=== PATIENT | female | born 1985 | race Caucasian/White ===

== ENCOUNTER → 2020-01-25 10:52 | Outpatient (CLI) | payer MEDICAID, SELFPAY ==
--- NOTE | 2020-01-25 10:52 | US_ITS ---
PROCEDURE: US BREAST LT COMPLETE CLINICAL INDICATION: US Left Breast- pain COMPARISON: No exams were available for comparison FINDINGS: General survey performed of the left breast by ultrasound shows no obvious cystic or solid lesions. IMPRESSION: Negative left breast ultrasound. Negative ultrasound does not exclude the possibility of malignancy. Any palpable nodule should be managed on clinical basis. Dictated by: Carlitos Patino MD 01/31/2020 09:47 Electronically signed by Carlitos Patino MD in [place] 01/31/2020 09:47
== END ==
PROVIDERS: PCP Family Medicine; Visit Provider Obstetrics & Gynecology
DX: N64.4 Mastodynia (principal)
CPT/HCPCS: 76641

== ENCOUNTER → 2020-03-05 10:47 | Outpatient (CLI) | payer MEDICAID, SELFPAY ==
[2020-03-05 11:31] LABS: Basophils % 0.2 % (0.1-2.0); Eosinophils # 0.2 K/mm3 (0.0-0.4); Eosinophils % 2.3 % (0.1-12.0); Hematocrit 37.2 % (37.0-47.0); Hemoglobin 12.7 g/dL (12.2-16.2); Lymphocytes # 1.6 K/mm3 (0.7-4.5); Lymphocytes % 22.3 % (10-50); Mean Corpuscular HGB Conc 34.2 g/dL (31.8-35.4); Mean Corpuscular Hemoglobin 29.7 pg (27.0-31.2); Mean Corpuscular Volume 86.8 fl (81-99); Mean Platelet Volume 7.4 fl (7.4-10.4); Monocytes # 0.2 K/mm3 (0.1-1.0); Monocytes % 2.9 % (1.7-9.3); Neutrophils # 5.3 K/mm3 (1.8-7.8); Neutrophils % 72.3 % (37.0-80.0); Platelet Count 298 K/mm3 (142-424); Red Blood Count 4.28 M/mm3 (4.20-5.40); Red Cell Distribution Width 13.8 % (11.5-17.5); White Blood Count 7.4 K/mm3 (4.8-10.8)
[2020-03-05 11:55] LABS: HCG Qualitative, Serum Negative (Negative)
[2020-03-05 12:21] LABS: Chloride 104 mmol/L (98-107)
[2020-03-05 12:22] LABS: Potassium 4.5 mmoL/L (3.5-5.1); Sodium 139 mmol/L (136-145)
[2020-03-05 12:24] LABS: Alanine Aminotransferase 18 U/L (12-78); Alkaline Phosphatase 75 U/L (38-126); Aspartate Amino Transferase 28 U/L (14-36); Bilirubin,Total 0.4 mg/dl (0.2-1.3); Blood Urea Nitrogen 15 mg/dl (7-17); Estimated Glomerular Filt Rate 96 ml/min (>60); GFR (African American) 117 ML/MIN (>60)
[2020-03-05 12:25] LABS: Albumin/Globulin Ratio 1.5 (1.1-1.8); Anion Gap 13.5 mEq/L (5-15); Calcium 9.6 mg/dl (8.4-10.2); Carbon Dioxide 26 mmol/L (22.0-30.0); Globulin 2.7 g/dL (1.3-3.2); Glucose 109 mg/dl (74-100); Total Protein,Serum 6.7 g/dl (6.3-8.2)
[2020-03-05 12:52] LABS: Coronavirus 19 IgG Antibody Negative (Negative); Coronavirus 19 IgM Antibody Negative (Negative)
== END ==
PROVIDERS: Visit Provider Obstetrics & Gynecology
DX: Z01.818 Encounter for other preprocedural examination (principal); Z20.828 Contact with and (suspected) exposure to other viral communicable diseases
CPT/HCPCS: 36415; 80053; 84703; 85025; 86328

== ENCOUNTER 2020-03-07 06:02 | Day surgery (SDC) | payer MEDICAID, SELFPAY ==
[2020-03-05 13:20] VITALS: BMI 36.3
[2020-03-07] VITALS (15 sets, daily range): BP systolic 112–178; BP diastolic 70–93; PULSE 64–83; RESP 12–18; TEMP 36.1–43; O2SAT 93–100
--- NOTE | 2020-03-07 07:34 | HMH.ANESCL ---
[facility] Anesthesia Checklist - Structural Data Admitted From: Home Planned Operative Procedure/s: d/c myosure Consent for Planned Operative Procedure(s) Verified: Yes - Additional verifications Anesthesia Reactions: No (difficult intubation) Hx Blood Transfusions: No Blood Transfusion Reaction: No - Airway Assessment C-Spine Mobility Assessed: Yes TMJ Mobility Assessed: Yes Dentition: Good Dentition - Neurological Assessment Level of Consciousness: Awake, Alert, Appropriate - Anesthesia Plan Anesthesia Risk discussed: Yes Anesthesia Plan: Verified ASA Class: II Anesthesia Type: General [facility] History Medical History: Denies:: Cancer, Diabetes Mellitus Type 1, Diabetes Mellitus Type 2, Internal Pacemaker, MRSA, Seizures *Have you ever received a pneumonia vaccine?: No *Have you received a flu vaccine this season?: Yes Other Medical History: Denies: Blood Transfusion Reaction Anesthesia experience/problems:: none Laterality Cases: Bilateral: Tonsillectomy Other Surgeries: No: Pacemaker Amputation: No Fractures: No - *Social History Last grade of school completed: High school graduate Smoking Status: Never smoker Alcohol Intake: never Alcohol Intake Frequency:: other Substance Use Type: denies use *Occupational Status:: unemployed Housing: house Household Members: spouse, family *Travel in the last 8 weeks: None Family Hx:: No significant family history
--- NOTE | 2020-03-07 09:01 | HMH.ANESI ---
[facility] Anesthesia Record Part I Intake, IV Amount: 1,200 Estimated blood loss (mL): 10 Urine output (mL): 100 Blood Pressure: 112/75 SaO2: 93 Pulse Rate: 83 Respiratory Rate: 12 Temperature: 97.8 F Patient is:: Awake, Stable Stable to PACU at:: 09:00
--- NOTE | 2020-03-07 09:21 | HMH.OPNOTE ---
Date of procedure: 03/07/20 Pre-op Diagnosis:: Heavy menstrual bleeding, severe dysmenorrhea, failed medical management Post-op Diagnosis:: same Procedure performed:: D&C Hysteroscopy Novasure Endometrial Ablation Surgeon:: Amparo Kumar MD DELIVERY ROUTE DRIVER:: Vinny Rader Anesthesia: GETA Estimated blood loss (mL): 5 Operative findings:: Grossly normal uterine cavity Operative note:: The patient was taken to the operating room and general anesthesia was administered. She was prepped/draped in lithotomy position. The anterior lip of the cervix was grasped with a single tooth tenaculum and the cervix was dilated with Berkowitz dilators of serially increasing size until the external os was able to accomodate the Myosure hysteroscope. The hysteroscope was advanced through the cervix and into the uterine cavity, which was distended with LR. Once the uterus was sufficiently distended, the cavity was evaluated and revealed no visible fibroids or polyps. The hysteroscope was removed from the uterus ans sharp curettage was performed. The uterine cavity sounded to a length of 5cm. The Novasure was inserted through the cervix and expanded to fit the width of the uterus, with a width of 4.3cm. After a successful cavity assessment, the device was deployed and the endometrial ablation was completed in 74 seconds. Once the device had turned off, the Novasure was removed from the uterus and the hysteroscope was reinserted into the uterine cavity. The cavity appeared diffusely cauterized. The hysteroscope was removed from the uterus and all instruments removed from the vagina. The tenaculum site was hemostatic. All sponge/lap/needle/instrument counts correct x2. Total EBL: 5 cc. The patient was taken out of lithotomy position, extubated and taken to the PACU in stable condition. Condition: stable Disposition: PACU Specimens:: Endometrial curettings Complications:: none
--- NOTE | 2020-03-07 09:40 | PC.NURSE ---
0922-pt med per eMAR for nausea w/Zofran 4mg IVP, pt reports pain is easing w/meds and turning on left side, vss 0928-detailed report called to EstefaniaRN 0930-pt transported to post op via stretcher w/anay rails up and left in care of KAMILAH Ngo with bed locked in lowest position, deatiled report given at bedside, vss, pt stable
--- NOTE | 2020-03-08 06:53 | P.PN_ITS ---
[facility] Anesthesia Record Part II Discharge Time: 09:30 Destination: Surgical Day Care (OP Surgery) PACU nurse assessment reviewed?: Yes Patient Condition:: Good Anesthesia Complications:: None Swallowing reflex intact?: Yes Cyanosis?: No Blood Pressure: 122/73 Pulse Rate: 71 Temperature: 98.1 F Mental Status: Alert & Oriented Pain level:: 3 Nausea and/or vomitting:: Nauseated Intake, IV Amount: 0 (Normovolemic)
[2020-03-08 06:55] VITALS: BP 122/73; PULSE 71; TEMP 36.7
== END 2020-03-07 10:10 | disposition home or self-care (01) ==
LOC: OR 06:04
PROVIDERS: PCP Family Medicine; Visit Provider Obstetrics & Gynecology
PROC: 0UDB8ZZ Extraction of Endometrium, Via Natural or Artificial Opening Endoscopic (ICD-10-PCS; CPT 58558; principal; 2020-03-07 08:00)
DX: Z98.51 Tubal ligation status (principal); N92.0 Excessive and frequent menstruation with regular cycle; N94.6 Dysmenorrhea, unspecified; I10 Essential (primary) hypertension; J45.909 Unspecified asthma, uncomplicated; E55.9 Vitamin D deficiency, unspecified; M79.7 Fibromyalgia; M06.9 Rheumatoid arthritis, unspecified; Z87.42 Personal history of other diseases of the female genital tract; Z88.6 Allergy status to analgesic agent; Z88.1 Allergy status to other antibiotic agents
CPT/HCPCS: 58563; 96374; J2405